=== PATIENT | female | born 1950 | race Caucasian/White ===

== ENCOUNTER 2025-05-18 12:55 | Emergency (ER) | payer MEDICARE, SELFPAY ==
--- OUTSIDE RECORDS SUMMARY | 2025-05-18 13:05 | XMS_ITS | Encounter Summary ---
Author Organization [facility] Address [address] [place] [address] Phone Care Team Providers Care Orthopedic Brace Maker Name Role Phone Chapin Christina DO Unavailable Todd Bobo MD Primary Care Provider + Jose Alfredo Mendez MD Unavailable Stephanie Braun RN Unavailable Unavailable Reason for Visit * Reason Comments Medication Refill Encounter Details Date Type Department Care Team (Late st Contact Info) Description 08/02/2020 Refill [facility] - Internal Medicine - [facility] [address] [place] [address] Todd Bobo MD [address] [place], [place] [address] Medication Refill Social History Tobacco Use Types Packs/Day Years Used Date Smoking Tobacco: Former Cigarettes 1 46 0 11/10/1968 - 11/10/2014 Smokeless Tobacco: Never Alcohol Use Standard Drinks/Week Comments Yes 0 (1 standard drink = 0.6 oz pur e alcohol) socially PHQ-2 Answer Date Recorded Total Score - Questions 1-9 0 08/17 Sexually Active Control Partners Comments Not Currently Comments No Sex and Gender Information Value Date Recorded Sex Assigned at Not on file Legal Sex Female 2:59 AM ANALYTICAL MANAGER Gender Identity Not on file Sexual Orientation Not on file Occupation Industry Job Start Date Job End Date Not on file Not on file Not on file Not on file documented as of this encounter Miscellaneous Notes * Telephone Encounter - Carola Funez RN - 08/03/2020 10:09 AM CST Medication failed the protocol, provider to review and approve the medication order if appropriate. Requested Prescriptions Pending Prescriptions Disp Refills traMADol (ULTRAM) 50 MG Tablet [Pharmacy Med Name: traMADol HCl 50 MG Oral Tablet] 60 Tablet 0 Sig: TAKE 1 TABLET BY MOUTH EVERY 8 HOURS NEEDED FOR SEVERE PAIN Not Delegated - Analgesics: Opioid Agonists Failed - 08/02/2020 6:30 AM Failed - Valid encounter within last 6 months Past Office Visits Recent Outpatient Visits 7 months ago Cellulitis of left lower extremity [facility] - Internal Medicine [facility] Luciana Salinas APN, CNP 11 months ago Chronic midline low back pain without sciatica [facility] Medical [facility] - Internal Medicine [facility] Todd Bobo MD 1 year ago Cough [facility] Medical [facility] - Internal Medicine [facility] Don Bentley DO 1 year ago Mixed hyperlipidemia [facility] Group - Internal Medicine [facility] Todd Bobo MD 3 years ago Mixed hyperlipidemia [facility] Medical [facility] - Internal Medicine [facility] Todd Bobo MD Upcoming Appointments CORRECTIONAL CASEWORK SPECIALIST - Recent and Past Visits Recent Visits Date Type Provider Dept 12/25/19 Office Visit Luciana Salinas APN, CNP [facility] 08/30/19 Office Visit Todd Bobo MD [facility] Showing recent visits within past 460 days with a meds authorizing provider and meeting all other requirements Future Appointments No visits were found meeting these conditions. Showing future appointments within next 90 days with a meds authorizing provider and meeting all other requirements Failed - This refill cannot be delegated YTICAL MANAGER documented in this encounter Plan of Treatment Not on file documented as of this encounter Visit Diagnoses Diagnosis Chronic midline low back pain without sciatica documented in this encounter Additional Health Concerns Infection Onset Date Last Indicated Resolved Time COVID - 19 01/14/2024 01/14/2024 01/14/2024 11:4 9 AM CDT COVID - 19 04/01/2025 04/01/2025 04/01/2025 5:09 PM CDT Respiratory Rule-Out 04/01/2025 04/01/2025 025 10:58 PM ANALYTICAL MANAGER Assessment Noted Time PHQ-9 Depression Total Score: 0 08/30/19 20 8:00 AM CDT documented as of this encounter Care Teams Orthopedic Brace Maker Relationship Specialty Start Date End Date Todd Bobo MD [address] [place] [address] PCP - General Family Medicine 04/18/16 Chapin Christina DO [address] [facility] [address] [place] [address] Consulting Physician Pain Medicine-Pain Management 06/08/15 Jose Alfredo Mendez MD [address] [facility] [address] [place] [address] Consulting Physician Pulmonary Disease 05/02/22 Stephanie Braun RN [place] Nurse Hand Inspector 11/08/23 11/08/23 documented as of this encounter
--- OUTSIDE RECORDS SUMMARY | 2025-05-18 13:05 | XMS_ITS | Encounter Summary ---
Author Organization [facility] Address [address] [place] [address] Phone Care Team Providers Care Silk Trimmer Name Role Phone Chapin Christina DO Unavailable Todd Bobo MD Primary Care Provider + Jose Alfredo Mendez MD Unavailable Stephanie Braun RN Unavailable Unavailable Reason for Visit * Reason Onset Date Comments Medication Refill 07/21/2022 Encounter Details Date Type Department Care Team (Late st Contact Info) Description 07/21/2022 Refill [facility] - [facility] [address] [place] [address] Todd Bobo MD [address] [place], [place] [address] Medication Refill Social History Tobacco Use Types Packs/Day Years Used Date Smoking Tobacco: Former Cigarettes 1 46 0 11/10/1968 - 11/10/2014 Smokeless Tobacco: Never Alcohol Use Standard Drinks/Week Comments Not Currently 0 (1 standard drink = 0.6 oz pur e alcohol) PHQ-2 Answer Date Recorded Total Score - Questions 1-9 0 10/2021 Sexually Active Control Partners Comments Not Currently Comments No Sex and Gender Information Value Date Recorded Sex Assigned at Not on file Legal Sex Female 2:59 AM CEMETERY COUNSELOR Gender Identity Not on file Sexual Orientation Not on file Occupation Industry Job Start Date Job End Date Not on file Not on file Not on file Not on file COVID-19 Exposure Response Date Recorded In the last 10 days, have yo u been in contact with someone who was confirmed or suspected to have Coronavirus/COVID-19? No / Unsure 07/22/2022 8:46 AM CEMETERY COUNSELOR documented as of this encounter Miscellaneous Notes * Telephone Encounter - Roslyn Johnson PAC - 07/21/2022 5:01 PM CEMETERY COUNSELOR Ref[place] ordered. [place] reviewed as per below. 20-day supply of tramadol prescribed on 07/05. Rx future-dated for 07/25. -Roslyn Johnson PA-C covering for Dr. Bobo Medication Dispense History (from 03/23/2022 to 07/21/2022) HYDROcodone-Acetaminophen Dispensed Written Strength Quantity Refills Days Supply Provider Pharmacy HYDROCODONE BITARTRATE-ACETAMINOPHE 07/15/2022 07/15/2022 325 MG/15 ML-7.5 MG/ 473 0 8 , [facility] LORazepam Dispensed Written Strength Quantity Refills Days Supply Provider Pharmacy LORAZEPAM 07/06/2022 07/06/2022 1 MG 30 0 30 , [facility] [id number] traMADol HCl Dispensed Written Strength Quantity Refills Days Supply Provider Pharmacy TRAMADOL HCL 07/05/2022 07/05/2022 50 MG 60 0 20 , [facility] [id number] TRAMADOL HCL 06/03/2022 06/03/2022 50 MG 60 0 20 , [facility] [id number] TRAMADOL HCL 04/04/2022 04/04/2022 50 MG 60 0 20 , [facility] [id number] External Sources Source Last Check[place] 07/21/2022 1:14 PM History Response Filed TERY COUNSELOR * Telephone Encounter - Rosa Spaulding RN - 07/21/2022 1:49 PM CEMETERY COUNSELOR Medication failed the protocol, provider to review and approve the medication order if appropriate. Requested Prescriptions Pending Prescriptions Disp Refills meloxicam (MOBIC) 15 MG Tablet 90 Tablet 0 Sig: Take 1 Tablet by mouth daily. NSAIDs Protocol Failed - 07/21/2022 1:16 PM Failed - Not delegated, patient not between 1 and 65 years of age Passed - Normal serum creatinine in past 12 months CREATININE, BLOOD Date Value Ref Range Status 05/08/2022 0.73 0.60 - 1.00 mg/dL Final Passed - Visit with relevant provider in past 12 months or upcoming 90 days Recent Visits Date Type Provider Dept 04/11/22 Office Visit Elisabet Abarca APRN, KIR[facility] 03/10/22 Office Visit Elisabet Abarca APRN, KIRBY [facility] 01/21/22 Office Visit Todd Bobo MD [facility] Showing recent visits within past 365 days and meeting all other requirements Future Appointments Date Type Provider Dept 07/29/22 Appointment Todd Bobo MD [facility] Showing future appointments within next 90 days and meeting all other requirements Passed - No matching NSAID med order in past 45 days No matching medication orders between 06/06/2022 1:49 PM and 07/21/2022 1:49 PM Passed - AST less than 55 or ALT less than 90 in past 12 months SGOT (AST) Date Value Ref Range Status 05/08/2022 23 5 - 34 U/L Final SGPT (ALT) Date Value Ref Range Status 05/08/2022 19 0 - 55 U/L Final Passed - HGB greater than 10 or HCT greater than 30 in past 12 months HEMOGLOBIN (HGB) Date Value Ref Range Status 05/08/2022 16.3 (H) 12.0 - 15.8 g/dL Final 05/30/2012 14.9 12.0 - 15.8 G/DL Final HEMATOCRIT (HCT) Date Value Ref Range Status 05/08/2022 50.7 (H) 36.0 - 47.0 % Final 05/30/2012 45.7 36.0 - 47.0 % Final traMADol (ULTRAM) 50 MG Tablet 60 Tablet 0 Sig: TAKE 1 TABLET BY MOUTH EVERY 8 HOURS NEEDED FOR SEVERE PAIN Not Delegated - Opioid Agonists Protocol Failed - 07/21/2022 1:16 PM Failed - This refill cannot be delegated Passed - Visit with relevant provider in past 12 months or upcoming 90 days Recent Visits Date Type Provider Dept 04/11/22 Office Visit Elisabet Abarca [facility], KIR[facility] 03/10/22 Office Visit Elisabet Abarca APRN, CNP [facility] 01/21/22 Office Visit Todd Bobo MD [facility] Showing recent visits within past 365 days and meeting all other requirements Future Appointments Date Type Provider Dept 07/29/22 Appointment Todd Bobo MD [facility] Showing future appointments within next 90 days and meeting all other requirements Refused Prescriptions Disp Refills ezetimibe (ZETIA) 10 MG Tablet 90 Tablet 3 Sig: Take 1 Tablet by mouth daily. Intestinal Cholesterol Absorption Inhibitors Protocol Passed - 07/21/2022 1:16 PM Passed - Visit with relevant provider in past year or upcoming 90 days Recent Visits Date Type Provider Dept 04/11/22 Office Visit Elisabet Abarca APRN, CNP [facility] 03/10/22 Office Visit Elisabet Abarca APRN, CNP [facility] 01/21/22 Office Visit Todd Bobo MD [facility] Showing recent visits within past 365 days and meeting all other requirements Future Appointments Date Type Provider Dept 07/29/22 Appointment Todd Bobo MD [facility] Showing future appointments within next 90 days and meeting all other requirements Passed - Lipid panel in past year LDL Date Value Ref Range Status 01/21/2022 147 (H) <130 mg/dL Final HDL CHOLESTEROL Date Value Ref Range Status 01/21/2022 58 >40 mg/dL Final CHOLESTEROL Date Value Ref Range Status 01/21/2022 233 (H) <200 mg/dL Final TRIGLYCERIDES Date Value Ref Range Status 01/21/2022 140 <150 mg/dL Final VLDL Date Value Ref Range Status 01/21/2022 28 10 - 50 mg/dL Final CHOL/HDL RATIO Date Value Ref Range Status 01/21/2022 4.0 0.0 - 4.4 Final NON-HDL CHOLESTEROL Date Value Ref Range Status 01/21/2022 175 (H) <130 mg/dL Final TERY COUNSELOR * Telephone Encounter - Narendra Ortiz - 07/21/2022 12:59 PM CST Called pt to r/s her ov w/GG from 07/25 to 07/29 for video visit and pt requested if she can get med refills on the following? Tramadol 50mg Mobic 15mg and Zetia 10mg tb? Pls advise and use [facility] in [place], [place].Thk u TERY COUNSELOR documented in this encounter Plan of Treatment Not on file documented as of this encounter Goals Goal Patient Goal Type Associated Problems Recent Progress Patient-Stated? Author Care Coordination Care Coordination Jessica Odonnell RN Note: Goal Reviewed with: patient Readiness to change: Ready to change Department associated with goal: [facility] Steps to achieve goal: Patient will complete lung cancer staging workup: PET, brain MRI, EBUS documented as of this encounter Visit Diagnoses Diagnosis Chronic midline low back pain without sciatica documented in this encounter Additional Health Concerns Infection Onset Date Last Indicated Resolved Time COVID - 19 01/14/2024 01/14/2024 01/14/2024 11:4 9 AM CDT COVID - 19 04/01/2025 04/01/2025 04/01/2025 5:09 PM CDT Respiratory Rule-Out 04/01/2025 04/01/2025 025 10:58 PM CEMETERY COUNSELOR Assessment Noted Time PHQ-9 Depression Total Score: 0 11/18/19 21 7:00 AM CDT documented as of this encounter Care Teams Silk Trimmer Relationship Specialty Start Date End Date Todd Bobo MD [address] [place] [address] PCP - General Family Medicine 04/18/16 Chapin Christina DO [address] [facility] [address] [place] [address] Consulting Physician Pain Medicine-Pain Management 06/08/15 Jose Alfredo Mendez MD [address] [facility] [address] [place] [address] Consulting Physician Pulmonary Disease 05/02/22 Stephanie Braun, ALLAN [place] Nurse Coal Picker 11/08/23 11/08/23 documented as of this encounter
--- OUTSIDE RECORDS SUMMARY | 2025-05-18 13:05 | XMS_ITS | Encounter Summary ---
Author Organization [facility] Address [address] [place] [address] Phone Care Team Providers Care Wrong Address Clerk Name Role Phone Chapin Christina DO Unavailable Todd Bobo MD Primary Care Provider + Jose Alfredo Mendez MD Unavailable [phone] Stephanie Braun RN Unavailable Unavailable Reason for Visit * Reason Comments Medication Refill Encounter Details Date Type Department Care Team (Late st Contact Info) Description 11/18/2020 Refill [facility] - [facility] - [facility] [address] [place] [address] Karishma Pradhan APRN, SAP PI ARCHITECT [address] [place], [place] [address] Medication Refill Social History Tobacco Use Types Packs/Day Years Used Date Smoking Tobacco: Former Cigarettes 1 46 0 11/10/1968 - 11/10/2014 Smokeless Tobacco: Never Alcohol Use Standard Drinks/Week Comments Yes 0 (1 standard drink = 0.6 oz pur e alcohol) socially PHQ-2 Answer Date Recorded Total Score - Questions 1-9 0 06/2020 Sexually Active Control Partners Comments Not Currently Comments No Sex and Gender Information Value Date Recorded Sex Assigned at Not on file Legal Sex Female 2:59 AM PERMIT AGENT Gender Identity Not on file Sexual Orientation Not on file Occupation Industry Job Start Date Job End Date Not on file Not on file Not on file Not on file COVID-19 Exposure Response Date Recorded In the last month, have you been in contact with someone who was confirmed or suspected to have Coronavirus / COVID-19? No / Unsure 11/17/2020 7:23 AM CDT documented as of this encounter Miscellaneous Notes * Telephone Encounter - Cristiane Shultz RN - 11/18/2020 11:10 AM CDT Medication failed the protocol, provider to review and approve the medication order if appropriate. Requested Prescriptions Pending Prescriptions Disp Refills traMADol (ULTRAM) 50 MG Tablet [Pharmacy Med Name: traMADol HCl 50 MG Oral Tablet] 60 Tablet 0 Sig: TAKE 1 TABLET BY MOUTH EVERY 8 HOURS NEEDED FOR SEVERE PAIN healthfinch Not Delegated - Analgesics: Opioid Agonists Failed - 11/18/2020 4:30 AM Failed - This refill cannot be delegated Passed - Valid encounter within last 6 months Past Office Visits Recent Outpatient Visits Yesterday Chest tightness [facility] - Internal Medicine [facility] Todd Bobo MD 10 months ago Cellulitis of left lower extremity [facility] - Internal Medicine [facility] Luciana Salinas APN, SAP PI ARCHITECT 1 year ago Chronic midline low back pain without sciatica [facility] - Internal Medicine [facility] Todd Bobo MD 2 years ago Cough [facility] Medical [facility] - Internal Medicine [facility] Don Bentley, 2 years ago Mixed hyperlipidemia [facility] - Internal Medicine [facility] Todd Bobo MD Upcoming Appointments Future Appointments In 1 year Todd Bobo MD [facility] - Internal Medicine [facility] [address] LICENSED MORTICIAN - Recent and Past Visits Recent Visits Date Type Provider Dept 11/17/20 Office Visit Todd Bobo MD [facility] 12/25/19 Office Visit Luciana Salinas APN, SAP PI ARCHITECT [facility] 08/30/19 Office Visit Todd Bobo MD [facility] Showing recent visits within past 460 days with a meds authorizing provider and meeting all other requirements Future Appointments No visits were found meeting these conditions. Showing future appointments within next 90 days with a meds authorizing provider and meeting all other requirements documented in this encounter Plan of Treatment [...] Respiratory Rule-Out 04/01/2025 04/01/2025 025 10:58 PM PERMIT AGENT Assessment Noted Time PHQ-9 Depression Total Score: 0 11/18/19 21 7:00 AM CDT documented as of this encounter Care Teams Wrong Address Clerk Relationship Specialty Start Date End Date Todd Bobo MD [address] [place], [place] [address] PCP - General Family Medicine 04/18/16 Chapin Christina DO [address] [facility] [address] [place] [address] Consulting Physician Pain Medicine-Pain Management 06/08/15 Jose Alfredo Mendez MD [address] [facility] [address] [place] [address] Consulting Physician Pulmonary Disease 05/02/22 Stephanie Braun RN [place] Nurse Flotation Operator 11/08/23 11/08/23 documented as of this encounter
--- OUTSIDE RECORDS SUMMARY | 2025-05-18 13:05 | XMS_ITS | Clinical Summary ---
Author Organization [facility] Address [address] [place] [address] Phone Care Team Providers Care Facilities Flight Check Pilot Name Role Phone Identified, No Provider Primary Care Provider Un available Social History Tobacco Use Types Packs/Day Years Used Date Smoking Tobacco: Never Assessed Comments Unknown Sex and Gender Information Value Date Recorded Sex Assigned at Not on file Legal Sex Female 8:09 AM MASTER CHEF Gender Identity Not on file Sexual Orientation Not on file Plan of Treatment Not on file Care Teams Facilities Flight Check Pilot Relationship Specialty Start Date End Date Identified, No Provider PCP - General 12/27/16
--- OUTSIDE RECORDS SUMMARY | 2025-05-18 13:05 | XMS_ITS ---
Author Name Interface, [id number] lity Address [address] [place] [address] [facility], [place], operated [facility] Address [address] [place] [address] Allergies and Adverse Reactions Medication/Group Name Reaction Severity Date adhesive 02/10/2025 penicillamine Rash, Swelling 02/10/2025 Plan Date Type Value 05/23/2025 APPOINTMENT Follow Up - ALEXANDRO (30) 05/14/2025 APPOINTMENT Follow Up - MD ( 15) 05/08/[address]-CHEST (30) 05/08/2025 APPOINTMENT Venipuncture (5) 05/08/2025 LAB_ORDER CMP 05/08/2025 LAB_ORDER CBC w/ auto diff 05/08/2025 LAB_ORDER CT chest w/ IV c ontrast Reason for Visit Follow Up - MD (15) Diagnostic Results Date Type Test Units Lower Limit Upper Limit Result Flag Comments Status Ordered By Specimen Source Lab Address 05/08 CBC w/ auto diff WBC X1000/ uL 4.26 9.66 5.07 FINAL [facility] [address] [employer] [facility] [id number] 0 05/08 CBC w/ auto diff RBC [id number] 00/uL 4.2 5.4 4.56 FINAL [facility], [address] [place] [id number] 0 05/08 CBC w/ auto diff HGB g/dL 11.5 16.0 13.0 FINAL [facility], [address] [place] [id number] 0 05/08 CBC w/ auto diff HCT % 37.0 47.0 41.3 FINAL Lorene Chaya [place] [facility], [address] [place] [id number] 0 05/08 CBC w/ auto diff MCV fl 80.0 99.0 90.6 FINAL Lorene [facility], [address] [place] [id number] 0 05/08 CBC w/ auto diff MCH pg 26.0 30.0 28.5 FINAL [facility], [address] [place] [id number] 0 05/08 CBC w/ auto diff MCHC g/dL 31.0 36.0 31.5 FINAL [facility] reJan[facility]el [facility], [address] [place] [id number] 0 05/08 CBC w/ auto diff RDW-C V, % % 12.1 14.6 14.5 FINAL [facility], [address] [place] [id number] 0 05/08 CBC w/ auto diff PLT X1000/ uL 133.0 382.0 250 FINAL [facility]Noel [facility], [address] [place] [id number] 0 05/08 CBC w/ auto diff MPV fl 8.6 12.2 9.6 FINAL [facility], [address] [place] [id number] 0 05/08 CBC w/ auto diff Luz Marina % % 40.9 73.1 71.9 FINAL [facility], [address] [place] [id number] 0 05/08 CBC w/ auto diff LY % % 21.1 53.8 14.8 Low FINAL Lorene [facility], [address] [place] [id number] 0 05/08 CBC w/ auto diff MO % % 3.7 9.6 10.3 High FINAL Lorene [facility]el [facility], [address] [place] [id number] 0 05/08 CBC w/ auto diff EO % % 0.4 6.5 2.4 FINAL Lorene [facility], [address] [place] [id number] 0 05/08 CBC w/ auto diff BA % % 0.0 1.8 0.4 FINAL [facility], [address] [place] [id number] 0 05/08 CBC w/ auto diff IG % 0.0 0.5 0.2% FINAL [facility] reNoel [facility], [address] [place] [id number] 0 05/08 CBC w/ auto diff Luz Marina # (ANC) X1000/ uL 1.27 5.67 3.65 FINAL [facility]Noel [facility], [address] [place] [id number] 0 05/08 CBC w/ auto diff LY # X1000/ uL 1.12 3.06 0.75 Low FINAL [facility], [address] [place] [id number] 0 05/08 CBC w/ auto diff MO # X1000/ uL 0.17 0.8 0.52 FINAL [facility]el [facility], [address] [place] [id number] 0 05/08 CBC w/ auto diff EO # X1000/ uL 0.0 0.43 0.12 FINAL [facility]ne [facility], [address] [place] [id number] 0 05/08 CBC w/ auto diff BA # X1000/ uL 0.0 0.3 0.02 FINAL L[facility]ne [facility], [address] [place] [id number] 0 05/08 CBC w/ auto diff IG # 0.0 0.05 0.01% FINAL [facility]ne [facility], [address] [place] [id number] 0 05/08 CBC w/ auto diff RDW-S D fl 37.0 54.0 48.3 FINAL L[facility]ne [facility], [address] [place] [id number] 0 05/08 CMP Gluco se mg/dL 70.0 105.0 88 FINAL [facility]ne [facility], [address] [place] [id number] 0 05/08 CMP Sodiu m mEq/L 136.0 145.0 137 FINAL [facility]ne [facility], [address] [place] [id number] 0 05/08 CMP Potas sium mEq/L 3.5 5.1 3.9 FINAL [facility]ne [facility], [address] [place] [id number] 0 05/08 CMP Chlor brandi mEq/L 98.0 107.0 101 FINAL Lorene Larkin [place] [facility], [address] [place] [id number] 0 05/08 CMP CO2 mEq/L 21.0 31.0 32 High FINAL Lorene [facility] X[facility]l [facility], [address] [place] [id number] 0 05/08 CMP Anion gap, mmol/ L mmol/L 6.0 20.0 8 FINAL Lorene Ros[facility]Ca [facility] be[facility]ley, [address] [place] [id number] 0 05/08 CMP BUN mg/dL 7.0 25.0 15 FINAL Lorene Ros[facility], [address] [place] [id number] 0 05/08 CMP Creat inine mg/dL 0.6 1.2 0.78 FINAL Lorene Leung [facility], [address] [place] [id number] 0 05/08 CMP eGFR, mL/mi n/1.7 3 78.0% FINAL Lorene Larkin [place] [facility], [address] [place] [id number] 0 05/08 CMP Calci um mg/dL 8.6 10.3 9.5 FINAL Lorene Larkin [place] [facility], [address] [place] [id number] 0 05/08 CMP Album in g/dL 3.5 5.7 4.4 FINAL Lorene Larkin [place] [facility], [address] [place] [id number] 0 05/08 CMP Total prote in g/dL 6.4 8.9 6.7 FINAL [place]ne [place]ark[place] [facility], [address] [place] [id number] 0 05/08 CMP Alkal ine phosp hatas e U/L 34.0 104.0 47 FINAL Lorene Larkin [place] [facility], [address] [place] [id number] 0 05/08 CMP AST/S GOT IU/L 13.0 39.0 17 FINAL L[facility]ne [facility], [address] [place] [id number] 0 05/08 CMP ALT/S GPT IU/L 7.0 52.0 12 FINAL Lorene RosarioCa re-Sadie be[facility]ley, [address] [place] [place] [id number] 0 05/08 CMP Bilir ubin, total mg/dL 0.3 1.0 0.3 FINAL L[facility]ne [facility], [address] [place] [id number] 0 05/08 CT CHEST W CONTR AST Reason For Exam: Lung adenoca rcinoma Additio nal Informa tion:EX AMINATI ON: CT CHEST WITH CONTRAS TINDICA TION: Adenoca rcinoma of the left upper lobe, status post chemora diation .COMPAR RON: CT chest with contras t 5 and 024, PET/CT 023.DAILY HNIQUE: Axial imaging of the chest followi ng IV adminis tration of 70 mL Omnipaq ue 300. Sagitta l and coronal reforma tted images and axial MIP images of the lungs were submitt ed and reviewe d. Radiati on dose reducti on techniq ues were utilize d. The total DLP calcula patsy for this exam is 737 mGy-cm. FINDING S:Simil ar subcent imeter left thyroid nodules . No supracl avicula r lymphad enopath y.Dipti l cardiac size without pericar dial effusio n. Moderat e thoraci c aortic atheros clerosi s. No aneurys m. Mild coronar y artery calcifi ed plaque. Stable mild degree of mid esophag eal wall thicken ing.No mediast inal, hilar, or axillar y lymphad enopath y.Mucus in the right mainste m bronchu s. Scarrin g in tractio n bronchi ectasis left upper lung. Left perihil ar consoli dation compati ble with posttre atment scarrin g is without signifi cant interva l change. Wedge-s haped conflue nt opacity anterio r to the left hilum is also stable. Left hilar calcifi cations stable. Mild emphyse ma. Mild right apical scarrin g. No new consoli dations . Stable trace left pleural effusio n. Stable scarrin g in the inferio r right middle lobe.Th ere is a new 8 mm pleural -based nodular opacity in the medial right lower lobe (/179) .Multil evel degener ative changes . No suspici ous lytic or blastic bone lesions .No suspici ous periphe ral soft tissue abnorma lities. Stable elevati on of the left hemidia phragm. Stable probabl e hemorrh agic cyst upper pole left kidney. Stable small liver hypoden sities. An 8 mm short axis right retrocr ural lymph node was previou sly 5 mm (201) . Calcifi ed splenic granulo mas.IMP RESSION :1. Stable posttre atment changes in the hilar/s uprahil ar left upper lobe.2. New 8 mm juxtapl eural medial right lower lobe nodule. This is favored to represe nt a focal area of atelect asis but should be followe d closely to exclude a new pulmona ry lesion. 3. Slight increas ed size of a subcent imeter right retrocr ural lymph node. This is nonspec ific. Attenti on on follow- up is recomme nded.Ca se finaliz ed on 5 16:29 Hilton Morillo M.D.Thi s report has been electro nically signed and verifie d by the [facility] whose name is printed above. FINAL Lorene Larkin Medications Date Name Route Dose Frequency Instructions Start Date End Date Status Fill Status Indication 02/10 Glucosa mine Oral oral 1.0 tablet daily active 02/10 Wilson-3 Fatty Acids Oral oral 1.0 capsul e daily active 02/10 Flutica sone Nasal [place] 50 mcg/act uation nasal active 02/10 Tramado l Oral oral 1.0 tablet as needed active 02/10 Tiotrop ium-Olo daterol Inhaler 2.5 mcg-2.5 mcg/act uation inhalati on mist daily active 02/10 Potassi um Chlorid e Oral ER Tab active 02/10 Albuter ol Nebuliz ed inhalati on active 02/10 Calcium Carbona te Oral oral 1.0 tablet daily active 02/10 Flutica sone-Sa lmetero l Inhaler 100 mcg-50 mcg/Dos e inhalati on active 02/10 Multivi tamins Oral Tablet oral 1.0 tablet active 02/10 Lidocai ne-Pril ocaine Topical Cream 2.5 %-2.5 % topical cream apply 1 hr prior to mediport stick 2022 active 02/10 Lorazep am Oral oral 1.0 tablet at bedtime for sleep 2022 active Problems Diagnosis Status Date of Diagnosis Resolution Date 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 Hypothyroidism (disorder) Active Notes Section * Nurse Note for: 08-MAY-25 [facility] Nurse Note Print Location: Unknown Date/Time Printed: 05/18/2025 01:05 PM ([facility]) Patient: Jannie Dubose Sex: Female : 1950 Date of Service: 05/08/2025 Allergies : penicillamine, adhesive Patient Assessment : Medication Administration : Incident to: Addy Chan MD Contrast and Tracer for Imaging Additional Medications Omnipaque (Iohexol IV 300 mg iodine/mL), 300 mg iodine/mL solution, 70 mL intravenously once, AllowSubstitution GIVEN: 300 mg iodine/mL 70 mL Pharmacy plan: ND: [id number] Dose Form Description: 300 mg iodine/mL solution Dispense/Waste: 70/0 mL Pharmacy dispense: NDC: [id number] Dispense/Waste: 70/0 mL Given Dose/Discard: 70/0 mL Start Time: 10:38 AM, Entered By: Sandy Bond, Stop Time: 10:39 AM, Entered By: Sandy Bond Procedures : CT Chest - Associated Problem(s): Lung adenocarcinoma *; Selected Billing Code(s): DIAGNOSTIC COMPUTED TOMOGRAPHY THORAX W/CONTRAST (37973) Entered By Sandy Bond; Incident to Addy Chan MD
--- OUTSIDE RECORDS SUMMARY | 2025-05-18 13:05 | XMS_ITS | Encounter Summary ---
Author Organization [facility] Address [address] [place] [address] Phone Care Team Providers Care Special Delivery Mail Carrier Name Role Phone Chapin Christina DO Unavailable Todd Bobo MD Primary Care Provider + Jose Alfredo Mendez MD Unavailable Stephanie Braun RN Unavailable Unavailable Reason for Visit * Reason Comments Medication Refill Encounter Details Date Type Department Care Team (Late st Contact Info) Description 03/10/2021 Refill [facility] - Internal Medicine - [facility] [address] [place] [address] Todd Bobo MD [address], [place] [address] Medication Refill Social History Tobacco Use Types [...] on file Legal Sex Female 2:59 AM SERVICES COORDINATOR Gender Identity Not on file Sexual Orientation Not on file Occupation Industry Job Start Date Job End Date Not on file Not on file Not on file Not on file COVID-19 Exposure Response Date Recorded In the last month, have you been in contact with someone who was confirmed or suspected to have Coronavirus / COVID-19? No / Unsure 02/13/2021 9:16 AM CDT documented as of this encounter Miscellaneous Notes * Telephone Encounter - Rosa Spaulding RN - 03/11/2021 8:41 AM CDT Requested too soon documented in this encounter Plan of Treatment [...] Respiratory Rule-Out 04/01/2025 04/01/2025 025 10:58 PM SERVICES COORDINATOR Assessment Noted Time PHQ-9 Depression Total Score: 0 11/18/19 21 7:00 AM CDT documented as of this encounter Care Teams Special Delivery Mail Carrier Relationship Specialty Start Date End Date Todd Bobo MD [address] [place], [place] [address] PCP - General Family Medicine 04/18/16 Chapin Christina DO [address] [facility] [address] [place] [address] Consulting Physician Pain Medicine-Pain Management 06/08/15 Jose Alfredo Mendez MD [address] [facility] [address] [place] [address] Consulting Physician Pulmonary Disease 05/02/22 Stephanie Braun RN [place] Nurse Die Reamer 11/08/23 11/08/23 documented as of this encounter
--- OUTSIDE RECORDS SUMMARY | 2025-05-18 13:05 | XMS_ITS ---
Author Organization [facility] Address [address] [place] [address] Phone Care Team Providers Care [employer] Name Role Phone Carri Chapin Munguia DO Unavailable Todd Bobo MD Primary Care Provider + Jose Alfredo Mendez MD Unavailable [phone] Active Problems Problem Noted Date Diagnosed Date Chronic respiratory failure with hypoxia 025 Raynaud's phenomenon without gangrene 09/18/2024 Acquired hypothyroidism 08/07/2024 Personal history of antineoplastic chemotherapy 04/04/2024 Encounter for removal of nena neled central venous catheter (CVC) with port 04/04/2024 COPD (chronic obstructive pulmonary disease) 02/2022 Chronically elevated hemidiaphragm 03/10/2022 Multiple thyroid nodules 10/23/2018 doses above 10 mg cause multiple side effects Psoriasis 05/16/2016 Class 1 obesity due to exces s calories without serious comorbidity with body mass index (BMI) of 31.0 to 31.9 in adult 05/31/2013 Hip pain, bilateral 03/21/2012 Trochanteric bursitis 12/13/2011 Lumbar facet arthropathy 11/01/2011 Chronic low back pain 05/24/2010 DJD (degenerative joint disease) 05/19/2009 Age-related osteoporosis wit hout current pathological fracture 05/19/2009 Hyperlipidemia 05/19/2009 Ex-smoker for more than 1 year 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 Past Treatment and Therapy Plans No past plan information found. Current Radiation Episodes * IMRT: Left LungOverview* First Treatment Date Latest Treatment Date Treatment Site Technique Goal Episode Provider 06/29/2022 08/09/2022 Left Lung IMRT Curative * Linked Problems Adenocarcinoma of left lung Treatment Courses* Course C1 06/29/2022 - 08/09/2022 Treatment Period Fraction Dose Fractions Total Dose Plans Planned [id number] 06/29/2022 - 08/09/2022 200 cGy 30 / 30 6,000 cGy Reference Points Delivered [id number] 06/29/2022 - 08/09/2022 6,000 cGy Resolved Problems Problem Noted Date Diagnosed Date Resolved Date Acute hypoxic respiratory failure 08/01/2024 09/18/2024 COPD exacerbation 08/01/2024 09/18/2024 Open left ankle fracture 05/16/2016 Malleolar fracture 11/10/2014 2 Open dislocation of left ankle 11/10/2014 03/10/2022 Pain medication agreement signed 05/23/2012 08/07/2018 Tobacco abuse 05/19/2009 05/16/2016
--- OUTSIDE RECORDS SUMMARY | 2025-05-18 13:05 | XMS_ITS | Encounter Summary ---
Author Organization [facility] Address [address] [place] [address] Phone Care Team Providers Care Drain Cleaner Plumber Name Role Phone Chapin Christina DO Unavailable [phone] Todd Bobo MD Primary Care Provider + Jose Alfredo Mendez MD Unavailable Reason for Visit * Reason Onset Date Comments Advice Only 08/01/2024 Leg Swelling 08/01/2024 Shortness of Breath 08/01/2024 Wheezing 08/01/2024 Cough 08/01/2024 Encounter Details Date Type Department Care Team (Late st Contact Info) Description 08/01/2024 Nurse Triage [facility] [address] [place] [id number] Todd Bobo MD [address] [place] [address] Advice Only; Leg Swelling; Shortness of Breath; Wheezing; Cough Social History Tobacco Use Types Packs/Day Years Used Date Smoking Tobacco: Former Cigarettes 1 46 0 11/10/1968 - 11/10/2014 Smokeless Tobacco: Never Alcohol Use Standard Drinks/Week Comments Not Currently 0 (1 standard drink = 0.6 oz pur e alcohol) PHQ-2 Answer Date Recorded Total Score - Questions 1-9 0 0 08/2024 Education Answer Date Recorded What is the highest level of school you have completed or the highest degree you have received? Bachelor's degree (e.g., BA, AB, BS) 07/22/2022 Sexually Active Control Partners Comments Not Currently Male Comments No Sex and Gender Information Value Date Recorded Sex Assigned at Not on file Legal Sex Female 2:59 AM CHARGE MASTER COORDINATOR Gender Identity Not on file Sexual Orientation Not on file Occupation Industry Job Start Date Job End Date Not on file Not on file Not on file Not on file documented as of this encounter Functional Status * Pain Description Answer Date of Assessment Author intermittent 08/02/2024 9:22 AM CHARGE MASTER COORDINATOR Yo Lopes RN * Question Answer Date of Assessment Author VTE Prevention/Management dorsiflexion/plantar flexion performed 08/01/2024 10:31 PM CHARGE MASTER COORDINATOR Lorraine Longoria RN * Conte Fall Risk Question Answer Date of Assessment Author History of Falling, Immediat e or Within 3 Months 0 08/02/2024 12:45 AM Lorraine Henry RN Secondary Diagnosis 15 08/02/2024 12:45 AM Lorraine Menjivar RN Ambulatory Aid 0 08/02/2024 12:45 AM Lorraine Plasencia RN Intravenous Therapy/Heparin Lock 20 08/02/19 25 12:45 AM Lorraine Henry RN Gait/Transferring 0 08/02/2024 12:45 AM Lorraine Henry RN Mental Status 0 08/02/2024 12:45 AM CHARGE MASTER COORDINATOR Lorraine Mcfadden RN Conte Fall Risk Score 35 08/02/2024 12:45 AM Lorraine Henry RN * Question Answer Date of Assessment Author O2 Flow Rate (l/min) 2 08/02/2024 8:23 AM Carlo Lyn RRT * Question Answer Date of Assessment Author BP 143/62 08/02/2024 8:06 AM CHARGE MASTER COORDINATOR Beni Urias CNA Temp 98.2 08/02/2024 8:06 AM CHARGE MASTER COORDINATOR Beni Urias CNA Pulse 108 08/02/2024 11:31 AM Carlo Umaña RRT Resp 18 08/02/2024 11:31 AM Carlo Umaña RRT * Question Answer Date of Assessment Author SpO2 95 08/02/2024 11:31 AM Carlo Umaña, REVIEW MANAGER * Safety Factors Answer Date of Assessment Author bed in low position;call lig ht in reach 08/02/2024 9:15 AM Yo Auguste RN * Pain Management Interventions Answer Date of Assessment Author pain management plan reviewe d with patient/caregiver 08/02/2024 9:22 AM Yo Auguste RN * Question Answer Date of Assessment Author Best Eye Response 4-->(E4) spontaneous 08/02/2024 9:15 AM Yo Auguste RN Best Verbal Response 5-->(V5) oriented 08/02/2024 9:15 AM Yo Auguste RN Best Motor Response 6-->(M6) obeys commands 08/02/2024 9:15 AM Yo Augutse RN Bryan Coma Scale Score 15 08/02/2024 9:15 AM Yo Auguste RN * Question Answer Date of Assessment Author Sensory Perception 4-->no impairment 08/02/2024 9:15 A M Yo Auguste RN Friction and Shear 3-->no apparent problem 08/02/2024 9:15 AM Yo Auguste RN Moisture 4-->rarely moist 08/02/2024 9:15 AM Yo Robb RN Deng Score 23 08/02/2024 9:15 AM Yo Bridges res, RN Nutrition 4-->excellent 08/02/2024 9:15 AM Yo Hough RN Activity 4-->walks frequently 08/02/2024 9:15 AM Yo Ramires RN Mobility 4-->no limitation 08/02/2024 9:15 AM Yo Auguste RN * Question Answer Date of Assessment Author Heart Rate (Monitor) 116 08/01/2024 9:00 PM Juhi Grove RN * Question Answer Date of Assessment Author O2 Device None (Room air) 08/02/2024 11:31 AM Carlo Diaz, REVIEW MANAGER * Pain Description Answer Date of Assessment Author intermittent 08/02/2024 9:22 AM Yo Auguste RN * Question Answer Date of Assessment Author Sensory Perception 4-->no impairment 08/02/2024 9:15 A M Yo Auguste RN Friction and Shear 3-->no apparent problem 08/02/2024 9:15 AM Yo Auguste RN Moisture 4-->rarely moist 08/02/2024 9:15 AM Yo Robb RN Deng Score 23 08/02/2024 9:15 AM Yo Bridges res, RN Nutrition 4-->excellent 08/02/2024 9:15 AM Yo Chow RN Activity 4-->walks frequently 08/02/2024 9:15 AM Yo Ramires RN Mobility 4-->no limitation 08/02/2024 9:15 AM Yo Auguste RN documented as of this encounter Mental Status * Pain Description Answer Entry Date Author intermittent 08/02/2024 9:22 AM Yo Auguste RN * Question Answer Entry Date Author VTE Prevention/Management dorsiflexion/plantar flexion performed 08/01/2024 10:31 PM Lorraine Henry RN * Question Answer Entry Date Author O2 Flow Rate (l/min) 2 08/02/2024 8:23 AM Carlo Lyn RRT * Question Answer Entry Date Author BP 143/62 08/02/2024 8:06 AM Beni Roque CNA Temp 98.2 08/02/2024 8:06 AM Beni Roque CNA Pulse 108 08/02/2024 11:31 AM Carlo Umaña RRT * Question Answer Entry Date Author SpO2 95 08/02/2024 11:31 AM Carlo Umaña RRT * Safety Factors Answer Entry Date Author bed in low position;call lig ht in reach 08/02/2024 9:15 AM Yo Auguste RN * Pain Management Interventions Answer Entry Date Author pain management plan reviewe d with patient/caregiver 08/02/2024 9:22 AM Yo Auguste RN * Question Answer Entry Date Author Best Eye Response 4-->(E4) spontaneous 5 9:15 AM Yo Auguste RN Best Verbal Response 5-->(V5) oriented 5 9:15 AM Yo Auguste RN Best Motor Response 6-->(M6) obeys commands 07/20 9:15 AM Yo Auguste RN Panther Burn Coma Scale Score 15 08/02/2024 9:15 AM Yo Auguste RN * Question Answer Entry Date Author Sensory Perception 4-->no impairment 08/02/2024 9:15 AM Yo Auguste RN Friction and Shear 3-->no apparent problem 08/02 9:15 AM Yo Auguste RN Moisture 4-->rarely moist 08/02/2024 9:15 AM Yo Auguste RN Deng Score 23 08/02/2024 9:15 AM Yo Auguste RN Nutrition 4-->excellent 08/02/2024 9:15 AM Yo Auguste RN Activity 4-->walks frequently 08/02/2024 9:15 AM Yo Auguste RN Mobility 4-->no limitation 08/02/2024 9:1 5 AM Yo Auguste RN * Question Answer Entry Date Author O2 Device None (Room air) 08/02/2024 11:31 AM CHARGE MASTER COORDINATOR Carlo Scott RRT documented in this encounter Miscellaneous Notes * Telephone Encounter - Todd Bobo MD - 08/01/2024 3:15 PM CHARGE MASTER COORDINATOR Pt went to Urgent Care and was sent to the ER GE MASTER COORDINATOR * Telephone Encounter - Mirta Amador RN - 08/01/2024 2:16 PM CHARGE MASTER COORDINATOR SITUATION: swelling in legs/ feet and hands/ shortness of breath/chest tightness BACKGROUND: Jannie contacting PCP office. Symptoms started last Monday07/24/24 patient started with aches and chills Per chart review, last office visit ASSESSMENT: Symptom Description / Location: Sinus drainage-not blowing anything out Swelling in bilateral legs from feet to knees Minimal swelling in both hands Chest tightness-worse when laying down Wheezing Shortness of breath Feels like rattling in throat like trying to get phlegm but can't Patient declined continuing with triage questions and wanted appointment in office Denies fever, confusion, slurred speech, history of blood clots, recent surgery, bedridden Pain: Patient declined continuing with triage questions and wanted appointment in office Fever: Denies fever. Treatment / Response: tylenol, over the counter cough medicine at night with some relief. RECOMMENDATION: Unable to obtain disposition as patient declined continuing with triage questions. Patient requesting office visit today. No appointment available for one month. Patient encouraged to call back with questions or getting worse. Patient declined continuing with triage encounter Due to office unavailability within disposition, advised for patient to be seen at prompt care or urgent care. Caller agreeable to prompt care/urgent care. - See care advice and disposition for Guideline. First positive answer recorded, all responses to prior questions were negative. If symptoms increase, change or if new symptoms develop, call your health care provider or call back. Recommendations were based on caller information and is not a diagnosis. Verified and reviewed all triage information with caller. GE MASTER COORDINATOR * Telephone Encounter - Charisse De Luna - 08/01/2024 2:13 PM CST Symptoms: Leg Swelling - Not From Injury, Foot or Ankle Swelling, Chest Pain - Adult Outcome: Warm transfer to an emergent RN NOW! Reason: This is the only possible outcome for these symptoms The caller accepted this outcome. GE MASTER COORDINATOR documented in this encounter Plan of Treatment Not on file documented as of this encounter Goals Goal Patient Goal Type Associated Problems Recent Progress Patient-Stated? Author Care Coordination Care Coordination Jessica Odonnell, RN Note: Goal Reviewed with: patient Readiness to change: Ready to change Department associated with goal: [facility] Steps to achieve goal: Patient will complete lung cancer staging workup: PET, brain MRI, EBUS documented as of this encounter Visit Diagnoses Not on filedocumented in this encounter Additional Health Concerns Infection Onset Date Last Indicated Resolved Time COVID - 19 04/01/2025 04/01/2025 04/01/2025 5:09 PM CDT Respiratory Rule-Out 04/01/2025 04/01/2025 025 10:58 PM CHARGE MASTER COORDINATOR Assessment Noted Time PHQ-9 Depression Total Score: 0 06/21/19 25 9:19 AM CHARGE MASTER COORDINATOR documented as of this encounter Care Teams Drain Cleaner Plumber Relationship Specialty Start Date End Date Todd Bobo MD [address] [place], [place] [address] PCP - General Family Medicine 04/18/16 Chapin Christina DO [address] [facility] [address] [place] [address] Consulting Physician Pain Medicine-Pain Management 06/08/15 Jose Alfredo Mendez MD [address] [place] [address] Consulting Physician Pulmonary Disease 05/02/22 documented as of this encounter
--- OUTSIDE RECORDS SUMMARY | 2025-05-18 13:05 | XMS_ITS | Encounter Summary ---
Author Organization [facility] nter Address [address] [place] [address] Care Team Providers Care Health Services Rn Name Role Phone Telly Bobo MD Primary Care Provider [phone] Encounter Details Date Type Department Care Team (Late st Contact Info) Description 05/21/2018 Abstract [facility] Immediate Care located at [facility] [address] [place] [address] Seema Leon NP Social History Tobacco Use Types Packs/Day Years Used Date Smoking Tobacco: Former Cigarettes 1.5 50 Smokeless Tobacco: Never Comments No Sex and Gender Information Value Date Recorded Sex Assigned at Female 12/03/2018 10:08 AM CDT Legal Sex Female 7:16 PM CDT Gender Identity Not on file Sexual Orientation Not on file documented as of this encounter Plan of Treatment Not on file documented as of this encounter Procedures Procedure Name Priority Date/Time Associated Diagnosis Comments MAMMOGRAPHY Routine 08/17/2017 11:59 PM BOTTLE INSPECTOR documented in this encounter Results * MAMMOGRAPHY (08/17/2017 11:59 PM BOTTLE INSPECTOR) Mammogram See Care Everywhere Anatomical Region Laterality Modality Other us Historical Provider HEALTH MAINTENANCE Final Result documented in this encounter Visit Diagnoses Not on filedocumented in this encounter Care Teams Health Services Rn Relationship Specialty Start Date End Date Telly Bobo MD [address] [place] [address] PCP - General Family Medicine 03/01/17 documented as of this encounter
--- OUTSIDE RECORDS SUMMARY | 2025-05-18 13:05 | XMS_ITS | Patient Health Record ---
Author Organization [facility] Address [address] [place] [address] Support Name Relationship Address Phone Jannie Duobse Guarantor Unknown Reason For Referral No Information Medications Medication SIG (Take, Route, Frequency, Duration) Notes Start Date End Date Status Aspirin Adult Low Dose 81 MG Oral daily; Duration: 0 take 1 (one) by Oral route daily 11/18/2014 Active Problems Problem Type SNOMED Code ICD Code Onset Dates Problem Status W/U Status Risk Notes Problem Information temporarily unavailable Fx Bimalleolar Open (824.5) 5 Active confirmed Problem Information temporarily unavailable Open Dislocation Of (837.1) 5 Active confirmed Plan Of Treatment No Information Insurance Providers Payer Name Payer Address Payer Phone Subscriber Number Group Number Insured Name Patient Relationship to Insured Coverage Start Date Coverage End Date Human HMO [employer] [address] [place] [address] [id number] Jannie Dubose Self - patient is the insured 4 4 Human Medicare PPO [address] [address] [place] [address] [id number] Jannie Dubose Self - patient is the insured 4 Medical (General) History Surgical History Surgery Date(Month/Year) Gynecologic history of gynecologic surge ry lumpectomy Gynecologic History of gynecologic surge ry lumpectomy Surgery ankle surgery L ex fixx Elbow Surgery elbow surgery L arm Hysterectomy history of hysterectomy Appendectomy history of appendectomy Tonsillectomy history of tonsillectomy Elbow Surgery Elbow surgery L arm Surgery Ankle surgery L ex fixx
--- OUTSIDE RECORDS SUMMARY | 2025-05-18 13:05 | XMS_ITS | Data Portability ---
Author Organization [place] [facility] Address [address] [place] [address] Care Team Providers Care Boilers Inspector Name Role Phone MARÍA WILLIAMSON Primary Care Provider Assessment No assessment recorded. Plan of Treatment Reminders Order Date Submit Date Provider Last Modified By Organization Details Last Modified Time Details Appointments None record ed. Lab None record ed. Referral None record ed. Procedures None record ed. Surgeries None record ed. Imaging XR, foot, 3 or more view 017 04/24/20 17 [email or web address] In-House Test, For Internal Use Only, Do Not Delete/merge, [address] 7 17:41:55 Medication Orders None record ed. Patient TargetsNo targets recorded. Patient Instructions Encounter Date Encounter Id Patient Instructions Last Modified By Organization Details Last Modified Time 04/24/2017 [id number] saline soak treatment information [email or web address] Not available 04/24/2017 17:42:01 Reviewed options for nail fungus: removal temp vs. permanent, topicals, orals and laser treatment. Discussed improvement/curat bárbara/recurrence rates. Discussed risks and benefits of each and expense. Discussed oral pill concerns including itching, rash, taste bud changes, nausea and Liver damage symptoms of RUQ pain, muscle pain/weakness/fat igue, and yellowing of skin/eyes as well as labs needed. Patient understood all risks and agreed to proceed. Not available 04/24/2017 17:29:24 05/10/2017 [id number] Debrided. Healed and released. Return PRN [email or web address] Not available 05/10/2017 11:56:38 Reason for Referral None Reported. Results Created Date Observation Date Name Description Value Unit Range Abnormal Flag Note LastModifiedBy Organization Detail LastModifiedTime Result Notes None recorded. Problems No Known Problems Procedures Surgical History Date Name Laterality Status Provider Name and Address Organization Details Recorded Time 7 SBO [place]ifer completed Mayito Marie, AGUSTIN [address], [place], [address], [place] [employer] 04/24/2017 17:28:50 Imaging Results None recorded. Procedure Notes None recorded. Medical Equipment None Reported. Allergies Allergen ID Allergen Name Allergen Category Reaction Reaction Severity Criticality Documentation Date Start Date Code Code System Note Provider Name and Address Organization Details Recorded Time 93946 Product containin g penicilli n (product) medicatio n Not available Not available Not available 04/24/2017 61352 8001 SNOMED Rosa Matthew [facility] [employer] 7 16:19:19 Medications Name Sig Start Date Stop Date Status Note LastModified by Organization Details LastModified Time atorvastatin 40 mg tablet active Not Available Not Available Not Available meloxicam 15 mg tablet active Not Available Not Available No t Available prednisone 20 mg tablet active Not Available Not Available No t Available prednisone 5 mg tablet active Not Available Not Available No t Available tramadol 50 mg tablet active Not Available Not Available Not Available betamethasone, augmented 0.05 % topical ointment active Not Available Not Available Not Available levofloxacin 500 mg tablet active Not Available Not Availabl e Not Available cefdinir 300 mg capsule active Not Available Not Available N ot Available fluticasone propionate 50 mcg/actuation nasal spray,suspensi on active Not Available Not Available Not Available Ventolin HFA 90 mcg/actuation aerosol inhaler active Not Available Not Available Not Available Vitals Date Recorded Body height Body mass index (BMI) Body weight Provider Name and Address Organization Details Last Updated DateTime 04/24/2017 167.64 cm 29.9 kg/m2 43542.59 g Rosa Matthew [employer] 04/24/2017 16:18:15 Date Recorded Body height Body mass index (BMI) Body weight Provider Name and Address Organization Details Last Updated DateTime 05/10/2017 167.64 cm 29.9 kg/m2 36716.59 g Rosa Matthew [employer] 05/10/2017 11:41:17 Social History Question Answer Notes LastModified by Organizat ion Details LastModified Time Tobacco Smoking Status Former Smoker Rosa Matthew [facility], [facility] 04/24/2017 16:19:40 What Was The Date Of Your Most Recent Tobacco Screening? 05/10/2017 Information n ot available 01/09/2019 Shoe Size - Left 9 Information not available 04/24/2017 Shoe Size - Right 9 Information not available 04/24/2017 Using Orthotics? No Information not available 04/24/2017 Sex: Unknown Functional Status Question Answer Note LastModified by Organization D etails LastModified Time What is your level of alcohol consumption? None Information not available 04/24/2017 Mental Status None recorded. Family History Nothing Reported. Medical History No medical history recorded. Gynecological HistoryNo gynecological history recorded. Obstetrics History GPAL:G 0 P 0 0 0 0 Past Encounters Encounter ID Performer Location Encounter Start Date Encounter Closed Date Diagnosis/Indication Diagnosis SNOMED-CT Code Diagnosis ICD10 Code Diagnosis IMO Codes Diagnosis Note [id number] Mayito Marie DPM [facility] [address] [facility] [place] [address] 04/24/2017 15:54:41 04/24/2017 16:59:19 Pain in lower limb 22797699 M79.661 sub 5 Neoplasm o f uncertain behavior of skin 00891531 D48.5 Disorder of nail 6583697 8 L60.9 [id number] Mayito Marie DPM [facility] [address] [facility] [place] [address] 05/10/2017 11:30:18 05/10/2017 11:58:43 Neoplasm of uncertain behavior of skin 39079058 D48.5 Health Concerns Section Related Observation LastModified by Organization Detai ls LastModified Time None Recorded Concern Status LastModified by Organization Details LastModified Time None Recorded Advance Directives Directive None Recorded Payers Insurance Date Sequence Insurance Name Policy Number Policy Currie Covered Member ID Currie Member ID Guarantor Name 05/09/2017 1 [employer] (MEDICARE REPLACEMENT/ ADVANTAGE - PPO) Jannie Dubose [id number] Jannie Dubose Notes Date Note Type Note Provider Name and Address Organization Details Recorded Time 04/24/2017 text/html Routine Foot CareReported by PatientHPIFor associated symptoms, patient reportspain with direct compressionbut reportsno redness,no warmth,no drainage, andno swelling. For location, patient reportscalluses right. For quality, patient reportswalkingandpain ful in shoes. For severity, patient reportsmoderate. For duration, patient reports1 months. For timing, patient reportscannot identify. For context, patient reportscannot identify. For alleviating factors, patient reportstaking off shoesandcessation of activity. For aggravating factors, patient reportswalking,weight bearing, andprecipitated by wearing shoes.first time had oneROS as noted in the [facility] Mayito Marie, AGUSTIN [address], [place], [address], [employer] 04/24/2017 17:30:45 05/10/2017 text/html Routine Foot CareReported by PatientHPIFor location, patient reportscalluses right. For quality, patient reportswalking. For severity, patient reportsmild. For alleviating factors, patient reportsrest. For aggravating factors, patient reportswalking. For associated symptoms, patient reportsno redness,no warmth,no drainage,no swelling, andno pain with direct compression.hurt week and half then doneROS as noted in the [facility] Mayito Marie, AGUSTIN [address], [place], [address], [employer] 05/10/2017 11:56:48 OBGyn Episode No OBEpisode recorded.
--- OUTSIDE RECORDS SUMMARY | 2025-05-18 13:05 | XMS_ITS | Clinical Summary ---
Author Organization [facility] Address [address] [place] [address] Care Team Providers Care Station Captain Name Role Phone Unavailable Primary Care Provider Unavailabl e Social History Tobacco Use Types Packs/Day Years Used Date Smoking Tobacco: Never Assessed Comments Unknown Sex and Gender Information Value Date Recorded Sex Assigned at Not on file Legal Sex Female 7:32 AM CDT Gender Identity Not on file Sexual Orientation Not on file Plan of Treatment Health Maintenance Due Date Last Done Comments Hepatitis C 1966 DTaP, Tdap and Td Vaccines ( 1 - Tdap) 12/08/1967 Pneumococcal Vaccine: 50+ Ye ars (1 of 1 - PCV) 1998 Zoster Vaccines (1 of 2) 1998 Dexa Scan (General) 2013 RSV Immunization or 60+ Years (1 - 1-dose 75+ series) 12/08/2023 COVID-19 Vaccine (2024-2 6 season) 2025 Influenza Adult (#1) 2025 Hepatitis A Vaccines Aged Out No long er eligible based on patient's age to complete this topic Meningococcal B Vaccine Aged Out No l onger eligible based on patient's age to complete this topic Meningococcal Vaccine Aged Out No ghulam sherley eligible based on patient's age to complete this topic RSV Immunizations Under 20 Months Aged Out No longer eligible based on patient's age to complete this topic
--- OUTSIDE RECORDS SUMMARY | 2025-05-18 13:05 | XMS_ITS | Encounter Summary ---
Author Organization [facility] Address [address] [place] [address] Phone Care Team Providers Care Manager Of Financial Planning Name Role Phone Chapin Christina DO Unavailable Todd Bobo MD Primary Care Provider + Jose Alfredo Mendez MD Unavailable Stephanie Braun RN Unavailable Unavailable Reason for Visit * Reason Comments Medication Refill Encounter Details Date Type Department Care Team (Late st Contact Info) Description 10/01/2021 Refill [facility] - Internal Medicine - [facility] [address] [place] [address] Todd Bobo MD [address], [place] [id number] Medication Refill Social History Tobacco Use Types [...] on file 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 Requested Prescriptions Pending Prescriptions Disp Refills traMADol (ULTRAM) 50 MG Tablet [Pharmacy Med Name: traMADol HCl 50 MG Oral Tablet] 60 Tablet 0 Sig: TAKE 1 TABLET BY MOUTH EVERY 8 HOURS NEEDED FOR SEVERE PAIN Not Delegated - Opioid Agonists Protocol Failed - 10/01/2021 11:40 AM Failed - This refill cannot be delegated Passed - Visit with relevant provider in past 12 months or upcoming 90 days Recent Visits Date Type Provider Dept 11/17/20 Office Visit Todd Bobo MD [facility] [place] Showing recent visits within past 365 days and meeting all other requirements Future Appointments Date Type Provider Dept 11/18/21 Appointment Todd Bobo MD [facility] [place] Showing future appointments within next 90 days and meeting all other requirements documented in [...] Respiratory Rule-Out 04/01/2025 04/01/2025 025 10:58 PM MOBILE CRANE OPERATOR Assessment Noted Time PHQ-9 Depression Total Score: 0 11/18/19 21 7:00 AM CDT documented as of this encounter Care Teams Manager Of Financial Planning Relationship Specialty Start Date End Date Todd Bobo MD [address] [place] [address] PCP - General Family Medicine 04/18/16 Chapin Christina DO [address] [facility] [address] [place] [address] Consulting Physician Pain Medicine-Pain Management 06/08/15 Jose Alfredo Mendez MD [address] [facility] [address] [place] [address] Consulting Physician Pulmonary Disease 05/02/22 Stephanie Braun RN [place] Nurse Sales Account Coordinator 11/08/23 11/08/23 documented as of this encounter
--- OUTSIDE RECORDS SUMMARY | 2025-05-18 13:05 | XMS_ITS | Clinical Summary ---
Author Organization [facility] Address [address] [place] [address] Care Team Providers Care Business Systems Analyst Name Role Phone Telly Bobo MD Primary Care Provider Allergies Active Allergy Reactions Criticality Noted Date Comments Adhesive Tape-Silicones Other (See Comments) Tears skin off Penicillin G Potassium Swelling Penicillins Itching,Swelling,Oth er (See Comments) 03/01/2017 Red streaks up her arms Medications meloxicam (MOBIC) 15 MG tablet 7 Active traMADol (ULTRAM) 50 mg tablet 7 Active glucosamine-telly droitin 500-400 mg capsule Take 1 capsule by mouth daily. Active omega 3-fish oil 300-1,000 mg Take 1,000 mg by mouth daily. Active multivitamin capsule Take 1 capsule by mouth daily. Active CALCIUM CARBONATE (CALCIUM 500 ORAL) Take by mouth. Activ e fluticasone (FLONASE) 50 mcg/actuation nasal spray Administer 2 sprays into each nostril daily. Active aspirin 81 mg chewable tablet Chew 81 mg daily. Active aspirin-calcium carbonate 81 mg-300 mg calcium(777 mg) tablet Take 81 mg by mouth. 5 Active betamethasone, augmented, (DIPROLENE) 0.05 % ointment Apply 2 x a day for 2 weeks, stop 1 week and repeat 6 Active calcium carbonate-vitami n D3 600 mg(1,500mg) -400 unit per tablet Take by mouth. Active omega-3 acid ethyl esters (LOVAZA) 1 gram capsule Take 1,000 mg by mouth. Active glucosamine HCl 1,500 mg tablet Take by mouth. Active meloxicam (MOBIC) 15 MG tablet Take 15 mg by mouth. 7 Active multivit-mineral s/ferrous fum (MULTI VITAMIN ORAL) Take by mouth. Activ e fluticasone (FLONASE) 50 mcg/actuation nasal spray Administer into affected nostril(s). 6 Active traMADol (ULTRAM) 50 mg tablet TAKE 1 TABLET BY MOUTH EVERY 8 HOURS NEEDED 8 Active albuterol (VENTOLIN HFA) 90 mcg/actuation inhalerIndicatio ns:Viral upper respiratory tract infection Inhale 1 puff every 4 (four) hours as needed for wheezing. 1 Inhaler 8 Active calcium carbonate-vitami n D3 600 mg(1,500mg) -400 unit per tablet Take 1 tablet by mouth Active meloxicam (MOBIC) 15 MG tablet meloxicam 15 mg tablet 9 Active Active Problems Problem Noted Date Diagnosed Date Closed fracture of lumbar vertebra 12/03/2018 Ex-smoker for more than 1 year 12/03/2018 Multiple thyroid nodules 10/23/2018 Psoriasis 05/16/2016 Hip pain, bilateral 03/21/2012 Chronic low back pain 05/24/2010 DJD (degenerative joint disease) 05/19/2009 Hyperlipidemia 05/19/2009 Osteopenia 05/19/2009 Family History Medical History Relation Name Comments No Known Problems Son Relation Name Status Comments Father (Age 80) COD: failu re to thrive after leg amputation Mother (Age 93) COD: old a ge Son Alive Social History Tobacco Use Types Packs/Day Years Used Date Smoking Tobacco: Former Cigarettes 1.5 50 0 11/17/1964 - 11/17/2014 Smokeless Tobacco: Never Alcohol Use Standard Drinks/Week Comments Never 0 (1 standard drink = 0.6 oz pur e alcohol) Comments No Sex and Gender Information Value Date Recorded Sex Assigned at Female 12/03/2018 10:08 AM CDT Legal Sex Female 7:16 PM CDT Gender Identity Not on file Sexual Orientation Not on file Last Filed Vital Signs Vital Sign Reading Time Taken Comments Blood Pressure 132/76 12/03/2018 10:14 AM CDT Pulse 74 12/03/2018 10:14 AM CDT Temperature 37.1 C (98.8 F) 12/03/2018 10:14 AM CDT Respiratory Rate 18 12/03/2018 10:14 AM CDT Oxygen Saturation 98% 12/03/2018 10:14 AM CDT Inhaled Oxygen Concentration - - Weight 87.6 kg (193 lb 1.6 oz) 12/03/2018 10:14 AM CDT Height 167.6 cm (5' 6) 12/03/2018 10:14 AM CDT Body Mass Index 31.17 12/03/2018 10:14 AM CDT Plan of Treatment Health Maintenance Due Date Last Done Comments RSV 60+ Group (1 - 1-dose 75 + series) 12/08/2023 Preventive Care and Screenin g: Influenza Immunization (#1) 2025 05/16/2016, 06/08/2015, 04/22/2013, Additional history exists Pneumonia Vacc. Status for O lder Adults Completed 06/08/2015, 06/06/2014, 05/19/2009 Insurance [facility] Care Teams Business Systems Analyst Relationship Specialty Start Date End Date Telly Bobo MD [address] [place] [address] PCP - General Family Medicine 03/01/17
--- OUTSIDE RECORDS SUMMARY | 2025-05-18 13:05 | XMS_ITS | CCD ---
Author Name Interface, [email or web address] lity Address [address] [place] [address] [facility] Address [address] [place] [address] Care Team Providers Care Tungsten Refiner Name Role Phone lE ROSAS, Surjit Hall Unavailable Unavailable Allergies and Adverse Reactions Medication/Group Name Reaction Severity Date adhesive 02/10/2025 penicillamine Rash, Swelling 02/10/2025 Care Plan Date Type Value 05/23/2025 APPOINTMENT Follow Up - ALEXANDRO (30) 05/14/2025 APPOINTMENT Follow Up - MD ( 15) 05/08/[address]-CHEST (30) 05/08/2025 APPOINTMENT Venipuncture (5) 05/08/2025 LAB_ORDER CMP 05/08/2025 LAB_ORDER CBC w/ auto diff 05/08/2025 LAB_ORDER CT chest w/ IV c ontrast Reason for Visit Follow Up - MD (15) Encounters Date Name 05/08/2025 Lung adenocarcinoma 05/08/2025 Lung adenocarcinoma 05/23/2025 Follow Up - ALEXANDRO (30) 05/08/2025 CT-CHEST (30) 05/08/2025 Venipuncture (5) Diagnostic Results Date Type Test Units Lower Limit Upper Limit Result Flag Comments Status Ordered By Specimen Source Lab Address 09/18 Lipid panel comme nt See gas main fitter d 08/02 BMP See gas main fitter d 09/18 CMP See gas main fitter d 05/08 CMP ALT/S GPT IU/L 7.0 52.0 12 FINAL [facility], [address] [employer] [facility] [id number] 0 05/08 CMP Gluco se mg/dL 70.0 105.0 88 FINAL [facility] re-Noel ramos, [address] [place] [id number] 0 05/08 CMP Anion gap, mmol/ L mmol/L 6.0 20.0 8 FINAL Lorene Lark[facility] re-Noel ramos, [address] [place] [id number] 0 05/08 CMP Total prote in g/dL 6.4 8.9 6.7 FINAL [facility], [address] [place] [id number] 0 05/08 CMP AST/S GOT IU/L 13.0 39.0 17 FINAL [facility]ne [facility]ark[facility] reJanNoel [facility], [address] [place] [id number] 0 05/08 CMP Bilir ubin, total mg/dL 0.3 1.0 0.3 FINAL Lorene Lark[facility] re-Noel [facility], [address] [place] [id number] 0 05/08 CMP Sodiu m mEq/L 136.0 145.0 137 FINAL Lorene [facility]ark[facility] reJanNoel [facility], [address] [place] [id number] 0 05/08 CMP Alkal ine phosp hatas e U/L 34.0 104.0 47 FINAL Lorene Lark[facility] re-Noel [facility], [address] [place] [id number] 0 05/08 CMP Calci um mg/dL 8.6 10.3 9.5 FINAL Lorene Lark[facility] re-Noel [facility], [address] [place] [id number] 0 05/08 CMP CO2 mEq/L 21.0 31.0 32 High FINAL Lorene Lark[facility] re-Onel [facility], [address] [place] [id number] 0 05/08 CMP eGFR, mL/mi n/1.7 3 78.0% FINAL Lorene Lark[place] [facility], [address] [place] [id number] 0 05/08 CMP Chlor brandi mEq/L 98.0 107.0 101 FINAL Lorene Lark[place] [facility], [address] [place] [id number] 0 05/08 CMP BUN mg/dL 7.0 25.0 15 FINAL Lorene Lark[place] [facility] Leung [facility], [address] [place] [id number] 0 05/08 CMP Creat inine mg/dL 0.6 1.2 0.78 FINAL Lorene Larkin [place] [facility] Leung [facility], [address] [place] [id number] 0 05/08 CMP Album in g/dL 3.5 5.7 4.4 FINAL Lorene Larkin [place] [facility] Leung [facility], [address] [place] [id number] 0 05/08 CMP Potas sium mEq/L 3.5 5.1 3.9 FINAL Lorene Larkin [place] [facility] Leung [facility], [address] [place] [id number] 0 09/18 CBC repor t See gas main fitter d 11/20 T4, free panel T4, free ng/dL 0.75 1.54 0.74 Low FINAL Surjit Gallegos 06/27 Ultra sound resul ts See gas main fitter d 05/08 CBC w/ auto diff [place]z [place] # (ANC) X1000/ uL 1.27 5.67 3.65 FINAL Lorene Chaya [facility] reShahla [facility], [address] [place] [id number] 0 05/08 CBC w/ auto diff MCV fl 80.0 99.0 90.6 FINAL [facility] re-Noel [facility], [address] [place] [id number] 0 05/08 CBC w/ auto diff IG % 0.0 0.5 0.2% FINAL [facility] re-Noel [facility], [address] [place] [id number] 0 05/08 CBC w/ auto diff MO # X1000/ uL 0.17 0.8 0.52 FINAL [facility] re-Noel [facility], [address] [place] [id number] 0 05/08 CBC w/ auto diff MO % % 3.7 9.6 10.3 High FINAL [facility] re-Noel [facility], [address] [place] [id number] 0 05/08 CBC w/ auto diff IG # 0.0 0.05 0.01% FINAL [facility] re-Noel [facility], [address] [place] [id number] 0 05/08 CBC w/ auto diff EO # X1000/ uL 0.0 0.43 0.12 FINAL [facility] re-Noel [facility], [address] [place] [id number] 0 05/08 CBC w/ auto diff EO % % 0.4 6.5 2.4 FINAL [facility] re-Noel [facility], [address] [place] [id number] 0 05/08 CBC w/ auto diff RBC [id number] 00/uL 4.2 5.4 4.56 FINAL [facility] re-Noel [facility], [address] [place] [id number] 0 05/08 CBC w/ auto diff MPV fl 8.6 12.2 9.6 FINAL [facility] reShahla [facility], [address] [place] [id number] 0 05/08 CBC w/ auto diff BA % % 0.0 1.8 0.4 FINAL [facility] reShahla [facility], [address] [place] [id number] 0 05/08 CBC w/ auto diff BA # X1000/ uL 0.0 0.3 0.02 FINAL [facility] reShahla [facility], [address] [place] [id number] 0 05/08 CBC w/ auto diff HGB g/dL 11.5 16.0 13.0 FINAL [facility] reShahla [facility], [address] [place] [id number] 0 05/08 CBC w/ auto diff MCHC g/dL 31.0 36.0 31.5 FINAL [facility] Xochitl [facility], [address] [place] [id number] 0 05/08 CBC w/ auto diff HCT % 37.0 47.0 41.3 FINAL [facility] reShahla [facility], [address] [place] [id number] 0 05/08 CBC w/ auto diff WBC X1000/ uL 4.26 9.66 5.07 FINAL [facility] re[facility]ahla [facility], [address] [place] [id number] 0 05/08 CBC w/ auto diff PLT X1000/ uL 133.0 382.0 250 FINAL [facility] re[facility]ahla [facility], [address] [place] [id number] 0 05/08 CBC w/ auto diff RDW-S D fl 37.0 54.0 48.3 FINAL [facility] re-Noel [facility], [address] [facility] [id number] 0 05/08 CBC w/ auto diff RDW-C V, % % 12.1 14.6 14.5 FINAL [facility] reNoel [facility], [address] [facility] [id number] 0 05/08 CBC w/ auto diff LY % % 21.1 53.8 14.8 Low FINAL [facility] reShahla [facility], [address] [facility] [id number] 0 05/08 CBC w/ auto diff MCH pg 26.0 30.0 28.5 FINAL [facility] reNoel [facility], [address] [facility] [id number] 0 05/08 CBC w/ auto diff LY # X1000/ uL 1.12 3.06 0.75 Low FINAL [facility] lenaNoel [facility], [address] [facility] [id number] 0 05/08 CBC w/ auto diff [place] % % 40.9 73.1 71.9 FINAL [facility] reNoel [facility], [address] [facility] [id number] 0 08/07 CXR See gas main fitter d 08/01 B-Typ e natri ureti c pepti de See gas main fitter d 08/01 Magne sium, mEq/L See gas main fitter d 11/20 CT scan resul t See gas main fitter d 11/20 TSH panel TSH uIU/mL 0.3 6.0 4.87 FINAL Surjit Gallegos 05/08 CT CHEST W CONTR AST Reason [...] were utilize d. The total DLP calcula ptasy for this exam is 737 mGy-cm. FINDING [...] opacity in the medial right lower lobe (179) .Multil evel degener ative changes . No suspici ous lytic or blastic bone lesions .No suspici ous periphe ral soft tissue abnorma lities. Stable elevati on of the left hemidia phragm. Stable probabl e hemorrh agic cyst upper pole left kidney. Stable small liver hypoden sities. An 8 mm short axis right retrocr ural lymph node was previou sly 5 mm () . Calcifi ed splenic granulo mas.IMP RESSION [...] signed and verifie d by the [facility] whose name is printed above. FINAL Lorene Larkin 11/20 T3, free panel T3, free pg/mL 2.0 4.4 2.6 FINAL Surjit Gallegos Medications Administered Date Name Route Dose Frequency Instructions Start Date End Date Status 05/08/2025 iohexol intravenously 70.0 mL once 05/08/202504/20 inactive Medications Date Name Route Dose Frequency Instructions Start Date End Date Status Fill Status Indication 02/10 Flutica sone-Sa lmetero l Inhaler 100 mcg-50 mcg/Dos e inhalati on active 02/10 Potassi um Chlorid e Oral ER Tab active 02/10 Glucosa mine Oral oral 1.0 tablet daily active 02/10 Tramado l Oral oral 1.0 tablet as needed active 02/10 Multivi tamins Oral Tablet oral 1.0 tablet active 02/10 [place]-3 Fatty Acids Oral oral 1.0 capsul e daily active 02/10 Calcium Carbona te Oral oral 1.0 tablet daily active 02/10 Albuter ol Nebuliz ed inhalati on active 02/10 Flutica sone Nasal [place] 50 mcg/act uation nasal active 02/10 Tiotrop ium-Olo daterol Inhaler 2.5 mcg-2.5 mcg/act uation inhalati on mist daily active 02/10 Lidocai ne-Pril ocaine Topical Cream 2.5 %-2.5 % topical cream apply 1 hr prior to mediport stick 2022 active 02/10 Lorazep am Oral oral 1.0 tablet at bedtime for sleep 2022 active Problems Diagnosis Status Date of Diagnosis Resolution Date 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 Hypothyroidism (disorder) Active Procedures Date Category Name Instructions Status 05/08/[address] chest w/ IV contrast CT C [id number] VALID 04/18/2025-06/17/2025 4.12C77.9 Ordered 05/08/2025 Physician Order Computed tomogra phy of chest (procedure) Administered 05/26/2025 Physician Order Pre-Cert PCP Follow up PC P Auth - [employer] - Exp 06/17/2025 Ordered Social History Date Name Value 05/07/2025 Sex Female Visits Date Type Value 05/23/2025 Follow Up - ALEXANDRO (30) Vital Signs Date Type Value 11/22/2024 Body Temperature 98.20 11/22/2024 Heart Beat 87.00 11/22/2024 Intravascular Systolic 125 11/22/2024 Intravascular Diastolic 65 11/22/2024 BSA 1.99 11/22/2024 Height 66.20 11/22/2024 BMI 31.44 11/22/2024 Weight 196.00
--- OUTSIDE RECORDS SUMMARY | 2025-05-18 13:05 | XMS_ITS | Encounter Summary ---
Author Organization [facility] Address [address] [place] [address] Phone Care Team Providers Care Dressed Poultry Grader Name Role Phone Chapin Christina DO Unavailable [phone] Todd Bobo MD Primary Care Provider + Jose Alfredo Mendez MD Unavailable [phone] Stephanie Braun RN Unavailable Unavailable Reason for Visit * Reason Comments Medication Refill Encounter Details Date Type Department Care Team (Late st Contact Info) Description 03/11/2021 Refill [facility] - Internal Medicine - [facility] [address] [place] [address] Todd Bobo MD [address] [place], [place] [address] Medication Refill Social History Tobacco Use Types [...] on file 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 Gender Identity Not on file Sexual Orientation [...] Telephone Encounter - Rosa Spaulding RN - 03/12/2021 8:46 AM CDT Requested too soon documented in [...] Respiratory Rule-Out 04/01/2025 04/01/2025 025 10:58 PM OPERATIONAL METEOROLOGIST Assessment Noted Time PHQ-9 Depression Total Score: 0 11/18/19 21 7:00 AM CDT documented as of this encounter Care Teams Dressed Poultry Grader Relationship Specialty Start Date End Date Todd Bobo MD [address] [place], [place] [address] PCP - General Family Medicine 04/18/16 Chapin Christina DO [address] [facility] [address] [place] [address] Consulting Physician Pain Medicine-Pain Management 06/08/15 Jose Alfredo Mendez MD [address] [facility] [address] [place] [address] Consulting Physician Pulmonary Disease 05/02/22 Stephanie Braun RN [place] Nurse Manager Asset 11/08/23 11/08/23 documented as of this encounter
[2025-05-18 13:10] VITALS: BP 152/63; PULSE 96; RESP 18; TEMP 36.3; O2SAT 96
--- NOTE | 2025-05-18 13:13 | ED.URI ---
HPI - URI/Sore Throat General Chief Complaint: Upper Respiratory Infection Stated Complaint: Sinus Infection Patient presents to the [facility] with complaints of sinus pain, nasal congestion, chest congestion, increased cough, increased shortness of breath, and fatigue that began about 4-5 days ago. Patient noted she has a long history of COPD and chronic sinusitis requesting prescription for Levaquin and steroids. patient noted if she does not take these 2 medications than it typically she will end up in the hospital with pneumonia. No known sick contacts. Patient has been using her daily inhaler, daily medications for sinusitis and as needed inhalers with minimal relief of symptoms. Denies fever, chills, body aches, dizziness, nausea, vomiting, diarrhea. Related Data Home Medications ?Medication ?Instructions ?Recorded ?Confirmed ?Last Taken ?Type levothyroxine 25 mcg tablet mcg 05/18/25 Unknown History tiotropium 2.5 mcg-olodaterol 2.5 inhalation 05/18/25 Unknown History mcg/actuation mist for inhalation (Stiolto Respimat) tramadol 50 mg tablet mg 05/18/25 Unknown History Allergies Allergy/AdvReac Type Severity Reaction Status Date / Time Penicillins Allergy Unknown unknown Verified 05/18/25 13:10 Review of Systems Constitutional: Constitutional: Reports as per HPI, Denies chills, Reports fatigue, Denies fever(s) and Denies weakness Eyes: Eyes: Reports no additional eye complaints ENT: Reports as per HPI, Denies vertigo, Denies dizziness, Reports nasal congestion and Reports sore throat Comments: Sinus pain, nasal drainage Cardiovascular: Cardiovascular: Reports no additional cardiovascular complaints Respiratory: Respiratory: Reports as per HPI, Reports chest congestion, Reports cough, Reports dyspnea and Reports wheezing Gastrointestinal: Gastrointestinal: Reports no additional gastrointestinal complaints Genitourinary: Genitourinary: Reports no additional female genitourinary complaints Musculoskeletal: Musculoskeletal: Reports as per HPI, Denies back pain, Reports myalgias and Denies arthralgias Integumentary/Breasts: Skin/Breast: Reports as per HPI, Denies erythema and Denies rash Neurologic: Reports as per HPI, Denies vertigo, Denies dizziness, Reports headache(s) and Denies weakness Psychiatric: Psychiatric: Reports no additional psychiatric complaints Endocrine: Endocrine: Reports no additional endocrine complaints Hematologic/Lymphatic: Hematologic/Lymphatic: Reports no additional hematologic/lymphatic complaints Allergic/Immunologic: Allergic/Immunologic: Reports as per HPI and Reports wheezing Comments: chronic sinusitis, seasonal allergies Exam Const: General: healthy appearing and no acute distress Nutritional Appearance: well nourished Orientation/consciousness: patient oriented x3 Limitations: no limitations HENMT: Head: normal to inspection Ears: external ears normal and TM's normal bilaterally Face/Nose/Sinus: Normal external nose present and Normal nares present Face and sinus: normal facial exam and sinus tenderness maxillary Mouth: Yes Normal oral and palatal mucosa present, Yes lip normal and Yes moist mucous membranes Throat: posterior oropharynx normal Neck: Neck: normal visual inspection and no lymphadenopathy Chest: Chest palpation & inspection: normal inspection of the chest Resp: Effort & Inspection: normal respiratory effort Auscultation: rhonchi and diminished lung sounds Cardio: Rate: regular rate Rhythm: regular rhythm Skin: General skin exam: normal color Rashes: no rashes Wounds: no wounds Neuro: General: patient oriented x3 Speech: normal speech Gait exam (Neuro): Normal gait present Extrem: General: normal to inspection and no clubbing, cyanosis or edema Psych: Mental Status: mental status grossly normal Affect: normal affect Attitude: cooperative Course Course Level of Care: Express Care Visit Vital Signs Vital signs: Vital Signs Temperature 97.3 F L 05/18/25 13:10 Pulse Rate 96 05/18/25 13:10 Respiratory Rate 18 05/18/25 13:10 Blood Pressure 152/63 H 05/18/25 13:10 Pulse Oximetry 96 05/18/25 13:10 Oxygen Delivery Room Air 05/18/25 13:10 Temperature 97.3 F L 05/18/25 13:10 Pulse Rate 96 05/18/25 13:10 Respiratory Rate 18 05/18/25 13:10 Blood Pressure 152/63 H 05/18/25 13:10 Pulse Oximetry 96 05/18/25 13:10 Oxygen Delivery Room Air 05/18/25 13:10 MDM - URI/Sore Throat MDM Narrative Medical decision making narrative: Spoke with patient about overall symptoms patient requesting Levaquin with prednisone taper. Educated patient current of these medications especially use together. Patient noted she is well aware of these risks and this is the only thing that works for her and the only thing that keeps her out of the hospital with pneumonia. noted if we are unable to give this to her she will go somewhere else and find someone that will give this to her. The patient was evaluated by myself in the [facility] care. History is obtained from patient who is an independent historian and physical exam was performed. Available medical records were reviewed at this time. Exam findings show no acute concerns or changes; patient is non-toxic appearing and is in no distress. Patient is appropriate for outpatient treatment and follow-up. I have evaluated and discussed social determinants of health with the patient that could potentially impact subsequent diagnosis and treatment plans. Differential diagnosis and treatment plan were discussed with the patient. Patient agrees with discussion and after shared medical decision making agrees with plan of care. All questions were answered to the patient's satisfaction. Differential Diagnosis Differential diagnosis: Likely upper respiratory infection, croup, otitis media, sinusitis, viral infection, bronchitis, influenza and pharyngitis Medical Records Attestation: I reviewed the patient's medical records. Lab Data Lab results narrative: Declines labs Discharge Plan Discharge Clinical Impression: Sinusitis Patient Disposition: Home Condition: Stable Instructions: Antibiotic Form, Sinusitis (ED) Additional Instructions: Take the antibiotics as directed for the entire course. Do not miss any doses. What you are taking antibiotics and is recommended to take a probiotic or have yogurt daily to return the good gut bacteria to your system. This can also help with acute diarrhea while taking antibiotics. It can take 24-48 hours for the antibiotics to start to relieve your symptoms continue to take these medications to help with various symptoms: Tylenol or Motrin for pain, headache, or fever Flonase/fluticasone or Nasacort/triamcinolone nasal spray- helps with congestion and nasal drainage. Sudafed/pseudoephedrine helps with sinus pain and congestion. Caution with high blood pressure. Use a humidifier or vaporizer at night. Drink plenty of water. 8-10 glasses per day. Mucinex/gu[place]ifenes[place] directed and be sure to take with 8oz of water. Warm compresses over the forehead and cheeks to promote sinus drainage. Return to urgent care or go to the ER for new or worsening symptoms. Follow up with Primary provider if not improved after 1 week. Patient Language: Ukrainian Prescriptions: New levofloxacin 750 mg tablet 750 mg PO DAILY Qty: 7 0RF prednisone 10 mg tablet 10 mg PO DIRECTED Qty: 18 0RF Rx Instructions: take 3 tablets for 3 days, 2 tablets for 3 days, 1 tablet for 3 days No Action tramadol 50 mg tablet levothyroxine 25 mcg tablet Stiolto Respimat 2.5-2.5 mcg/actuation mist INHALATION Follow-up/Referrals: Jeramie,Todd Roa. [Other] Time of Disposition: 13:26
== END 2025-05-18 13:35 | disposition home or self-care (01) ==
PROVIDERS: Emergency Provider Nurse Practitioner Family
DX: J32.9 Chronic sinusitis, unspecified (principal)
CPT/HCPCS: 99213; G0463